=== PATIENT | male | born 1995 | race Caucasian/White ===

== ENCOUNTER 2018-07-04 12:09 | Emergency (ER) | payer SELFPAY ==
[2018-07-04 12:29] VITALS: BP 114/77
--- NOTE | 2018-07-04 12:46 | UC ---
Abdominal Pain Female HPI - HPI Summary HPI Summary: 22 year old male with n/v/d. Pt states stomach cramping, nausea, vomiting, diarrhea started last night and has gotten progressively worse today. Pt states has had 4-5 instances of diarrhea today. He denies blood in his vomit or stool and no fevers. He did vomit last night but not yet today and he has had some loose stools today. He denies traveling, camping or recent antibiotics. Does not recall eating undercooked food or any new foods. [ End ] - History of Current Complaint Chief Complaint: UCAbdominalPain Stated Complaint: NAUSEA, AND DIARRHEA Time Seen by Provider: 07/04/18 12:25 Hx Obtained From: Patient Onset/Duration: Sudden Onset Pain Intensity: 6 Aggravating Factor(s): Nothing Alleviating Factor(s): Nothing Allergies/Adverse Reactions: Allergies Allergy/AdvReac Type Severity Reaction Status Date / Time methylphenidate Allergy Swelling Verified 07/04/18 12:22 [From Ritalin] Of Face,Lips,& Throat PMH/Surg Hx/FS Hx/Imm Hx Previously Healthy: Yes - Surgical History Surgical History: None - Family History Known Family History: Positive: None - Social History 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 Lives: With Family Alcohol Use: None Substance Use Type: None Substance Use Comment - Amount & Last Used: 600mg OTC last night, per patient Smoking Status (MU): Light Every Day Tobacco Smoker Amount Used/How Often: 1 cig/ day Review of Systems Constitutional: Fatigue Gastrointestinal: Abdominal Pain, Vomiting, Diarrhea, Nausea Is Patient Immunocompromised?: No All Other Systems Reviewed And Are Negative: Yes Physical Exam Triage Information Reviewed: Yes Appearance: Well-Appearing, No Pain Distress, Well-Nourished Vital Signs: Initial Vital Signs Temp 97.5 F 07/04/18 12:23 Pulse 57 07/04/18 12:23 Resp 18 07/04/18 12:23 BP 114/77 07/04/18 12:23 Pulse Ox 100 07/04/18 12:23 Eye Exam: Normal ENT Exam: Normal Dental Exam: Normal Neck exam: Normal Neck: Positive: 1 Respiratory Exam: Normal Cardiovascular Exam: Normal Abdominal Exam: Normal Abdomen Description: Positive: Nontender, No Organomegaly, Soft. Negative: CVA Tenderness (R), CVA Tenderness (L), Distended, Guarding Musculoskeletal Exam: Normal Neurological Exam: Normal Psychological Exam: Normal Skin Exam: Normal Abd Pain Female Course/Dx - Course Course Of Treatment: Conservative supportive treatment at this time and if symptoms persist return for further evaluation and potential for stool cultures - Differential Dx/Diagnosis Provider Diagnoses: viral gastroenteritis Discharge - Sign-Out/Discharge Documenting (check all that apply): Patient Departure All imaging exams completed and their final reports reviewed: No Studies - Discharge Plan Condition: Good Disposition: HOME Prescriptions: Ondansetron [Zofran Odt] 4 mg PO TID PRN #15 tab.rapdis PRN Reason: Nausea Patient Education Materials: Gastroenteritis (ED) Forms: *Work Release Referrals: No Primary Care Phys,NOPCP [Primary Care Provider] - 4 Days - Billing Disposition and Condition Condition: GOOD Disposition: Home
== END 2018-07-04 13:05 | disposition home or self-care (01) ==
LOC: UCEAST 12:09
DX: A08.4 Viral intestinal infection, unspecified (principal); Z88.8 Allergy status to other drugs, medicaments and biological substances; F17.210 Nicotine dependence, cigarettes, uncomplicated
CPT/HCPCS: 99202; G0463